=== PATIENT | male | born 1940 | race Caucasian/White ===

== ENCOUNTER → 2017-11-24 | Outpatient (CLI) | payer MEDICARE ==
[~2017-11-24] MED LIST: GADOBUTROL 1 MMOL/ML 10 ML VIAL IVP ONE
== END | disposition home or self-care (01) ==
LOC: RADMN 09:30
PROVIDERS: ATTEND Internal Medicine Geriatric Medicine
DX: M79.604 Pain in right leg (principal); R22.41 Localized swelling, mass and lump, right lower limb; T81.89XA Other complications of procedures, not elsewhere classified, initial encounter
CPT/HCPCS: 73720; A9585

== ENCOUNTER 2019-08-22 10:33 | Day surgery (SDC) | payer MEDICARE, MEDICAID ==
[~2019-08-22] VITALS: Ht 165.1 cm; Wt 117.7 kg
[~2019-08-22 10:33] MED LIST changes: +CIPROFLOXACIN HCL 0.3% 2.5 ML OPHTHALMIC SOLUTION ONE; +CYCLOPENTOLATE HCL 1% 2 ML OPHTHALMIC SOLUTION ONE; +FLURBIPROFEN SODIUM 0.03% 2.5 ML OPHTHALMIC SOLUTION ONE; -GADOBUTROL 1 MMOL/ML 10 ML VIAL IVP ONE; +RINGERS SOLUTION,LACTATED 500 ML IV ONE; +TETRACAINE HCL/PF 0.5% 4 ML OPHTHALMIC SOLUTION ONE; +TROPICAMIDE 1% 2 ML OPHTHALMIC SOLUTION ONE
[2019-08-22] MEDS ORDERED: CIPROFLOXACIN HCL 0.3% 2.5 ML OPHTHALMIC SOLUTION OD SCH (11:00)
[2019-08-22] MEDS ORDERED: RINGERS SOLUTION,LACTATED 500 ML IV ONE (11:00)
[2019-08-22] MEDS ORDERED: CYCLOPENTOLATE HCL 1% 2 ML OPHTHALMIC SOLUTION OD SCH (11:00)
[2019-08-22] MEDS ORDERED: FLURBIPROFEN SODIUM 0.03% 2.5 ML OPHTHALMIC SOLUTION OD SCH (11:00)
[2019-08-22] MEDS ORDERED: TETRACAINE HCL/PF 0.5% 4 ML OPHTHALMIC SOLUTION OD ONE (11:00)
[2019-08-22] MEDS ORDERED: TROPICAMIDE 1% 2 ML OPHTHALMIC SOLUTION OD SCH (11:00)
[2019-08-22 11:38] LABS: GLUCOMETER DEV NAME(LOC) SDS.; GLUCOSE,POINT OF CARE 109 MG/DL (70-110)
[2019-08-22] MEDS ORDERED: HYDR25TA PO (11:45)
[2019-08-22] MEDS ORDERED: AMLO10TA55 PO (11:45)
[2019-08-22] MEDS ORDERED: METF-960 PO (11:45)
[2019-08-22] MEDS ORDERED: TAMS-13 PO (11:45)
== END 2019-08-22 12:10 | disposition home or self-care (01) ==
LOC: SURGERY 10:33
PROVIDERS: ATTEND Ophthalmology
DX: E11.36 Type 2 diabetes mellitus with diabetic cataract (principal); Z53.8 Procedure and treatment not carried out for other reasons; H25.13 Age-related nuclear cataract, bilateral; I10 Essential (primary) hypertension; Z79.899 Other long term (current) drug therapy; Z79.82 Long term (current) use of aspirin; Z79.4 Long term (current) use of insulin
CPT/HCPCS: 82962; 93005; J7120

== ENCOUNTER 2020-03-26 06:15 | Day surgery (SDC) | payer MEDICARE, MEDICAID ==
[2020-03-25 14:07] LABS: COVID AG,FIA SOURCE NASOPHARYNGEAL
[~2020-03-26] VITALS: Ht 182.9 cm; Wt 109.1 kg
[~2020-03-26 06:15] MED LIST changes: +AMLO10TA55 PO; +CIPROFLOXACIN HCL 0.3% 2.5 ML OPHTHALMIC SOLUTION OD SCH; -CIPROFLOXACIN HCL 0.3% 2.5 ML OPHTHALMIC SOLUTION ONE; +CYCLOPENTOLATE HCL 1% 2 ML OPHTHALMIC SOLUTION OD SCH; -CYCLOPENTOLATE HCL 1% 2 ML OPHTHALMIC SOLUTION ONE; +FLURBIPROFEN SODIUM 0.03% 2.5 ML OPHTHALMIC SOLUTION OD SCH; -FLURBIPROFEN SODIUM 0.03% 2.5 ML OPHTHALMIC SOLUTION ONE; +HYDR25TA PO; +KETOROLAC TROMETHAMINE 0.5% 5 ML OPHTHALMIC SOLUTION ONE; +METF-960 PO; +MOXIFLOXACIN HCL 0.5% 3 ML OPHTHALMIC SOLUTION ONE; +PHENYLEPHRINE HCL 2.5% 2 ML OPHTHALMIC SOLUTION ONE; +TAMS-13 PO; +TETRACAINE HCL/PF 0.5% 4 ML OPHTHALMIC SOLUTION OD ONE; -TETRACAINE HCL/PF 0.5% 4 ML OPHTHALMIC SOLUTION ONE; +TROPICAMIDE 1% 2 ML OPHTHALMIC SOLUTION OD SCH
[2020-03-26] MEDS ORDERED: HYALURONATE SODIUM 12 MG/ML 0.8 ML SYRINGE IO ONE (06:16)
[2020-03-26] MEDS ORDERED: POVIDONE-IODINE 10% 15 ML SOLUTION UD TP ONE (06:16)
[2020-03-26] MEDS ORDERED: HYALURONATE SOD/CHONDROITIN SOD 0.5 ML VIAL IO ONE (06:16)
[2020-03-26] MEDS ORDERED: BALANCED SALT 15 ML OPHTHALMIC IRRIG.SOLN OU ONE (06:16)
[2020-03-26] MEDS ORDERED: EPINEPHrine 1:1,000 [1 MG/ML] AMP SQ ONE (06:16)
[2020-03-26] MEDS ORDERED: TETRACAINE HCL/PF 0.5% 4 ML OPHTHALMIC SOLUTION OU ONE (06:16)
[2020-03-26] MEDS: KETOROLAC TROMETHAMINE 0.5% 5 ML OPHTHALMIC SOLUTION OD SCH ×3 (06:54→07:14)
[2020-03-26] MEDS: PHENYLEPHRINE HCL 2.5% 2 ML OPHTHALMIC SOLUTION OD SCH ×3 (06:54→07:14)
[2020-03-26] MEDS: MOXIFLOXACIN HCL 0.5% 3 ML OPHTHALMIC SOLUTION OD SCH ×3 (06:54→07:14)
[2020-03-26] MEDS: TROPICAMIDE 1% 2 ML OPHTHALMIC SOLUTION OD SCH ×3 (06:54→07:14)
[2020-03-26 06:55] LABS: GLUCOMETER DEV NAME(LOC) SDS.; GLUCOSE,POINT OF CARE 138 MG/DL (70-110)
[2020-03-26] MEDS ORDERED: MIDAZOLAM HCL 2 MG/2 ML VIAL IVP ONE (12:00)
[2020-03-26] MEDS ORDERED: FentaNYL CITRATE-PF 100 MCG/2 ML VIAL IVP ONE (12:00)
== END 2020-03-26 09:00 | disposition home or self-care (01) ==
LOC: SURGERY 06:15
PROVIDERS: ATTEND Ophthalmology
DX: H25.11 Age-related nuclear cataract, right eye (principal); Z20.828 Contact with and (suspected) exposure to other viral communicable diseases; E66.9 Obesity, unspecified; I48.92 Unspecified atrial flutter; I10 Essential (primary) hypertension; E11.36 Type 2 diabetes mellitus with diabetic cataract; Z98.890 Other specified postprocedural states; Z79.899 Other long term (current) drug therapy
CPT/HCPCS: 66982; 82962; 87426; 93005; C9803; J0171; J2250; J3010; J3490; J7120; V2632